=== PATIENT | female | born 1965 | race Caucasian/White ===

== ENCOUNTER → 2016-12-02 | Outpatient (CLI) | payer OTHER | END | disposition home or self-care (01) | LOC: YCFC.O 16:03 | PROVIDERS: ATTEND Nurse Practitioner Family | DX: N39.0 Urinary tract infection, site not specified (principal) ==

== ENCOUNTER → 2017-07-17 | Outpatient (CLI) | payer OTHER | END | disposition home or self-care (01) | LOC: LAB.O 07:27 | PROVIDERS: ATTEND Internal Medicine Rheumatology | DX: M06.89 Other specified rheumatoid arthritis, multiple sites (principal); Z79.899 Other long term (current) drug therapy; R79.89 Other specified abnormal findings of blood chemistry ==

== ENCOUNTER → 2017-09-09 | Outpatient (CLI) | payer OTHER | END | disposition home or self-care (01) | LOC: LAB.O 14:49 | PROVIDERS: ATTEND Internal Medicine Rheumatology | DX: M06.89 Other specified rheumatoid arthritis, multiple sites (principal); Z79.899 Other long term (current) drug therapy ==

== ENCOUNTER → 2018-03-25 | Outpatient (CLI) | payer BC | LOC: LAB.O 16:17 | PROVIDERS: ATTEND Internal Medicine Rheumatology | DX: M06.89 Other specified rheumatoid arthritis, multiple sites (principal); Z79.899 Other long term (current) drug therapy; Z01.89 Encounter for other specified special examinations ==

== ENCOUNTER 2018-03-29 21:32 | Emergency (ER) | payer BC ==
--- NOTE | 2018-03-29 21:58 | ED.PDOC ---
History of Present Illness - General Chief Complaint: General Stated Complaint: fever, weakness Time Seen by Provider: 03/29/18 21:51 Source: patient, family Exam Limitations: clinical condition - History of Present Illness Timing/Duration: getting worse - pt was better this morning and is worse now, other - 2 days Severity: severe Improving Factors: nothing Worsening Factors: movement Associated Symptoms: fever/chills, headaches, nausea/vomiting, weakness Allergies/Adverse Reactions: Allergies Codeine Allergy (Verified 03/29/18 21:48) Review of Systems - Review of Systems Constitutional: States: chills, fever, weakness EENTM: States: other - photophobia Respiratory: Denies: cough, short of breath Cardiology: Denies: chest pain, syncope Gastrointestinal/Abdominal: States: abdominal pain, constipation, nausea, vomiting. Denies: diarrhea Genitourinary: States: hematuria. Denies: dysuria, frequency Skin: Denies: rash Neurological: States: headache, weakness Endocrine: States: no symptoms reported Hematologic/Lymphatic: States: no symptoms reported Past Medical History (General) - Patient Medical History Hx Hypertension: Yes Surgical History: cholecystectomy - Vaccination History Hx Tetanus, Diphtheria Vaccination: Yes Hx Influenza Vaccination: No Hx Pneumococcal Vaccination: No - Social History Hx Alcohol Use: No - Female History Patient is a Female of Child Bearing Age (10 -59 yrs old): Yes Patient : No - tubal Family Medical History - Family History Father Family History: Unknown Physical Exam - Physical Exam General Appearance: Lethargic - disoriented, Obvious distress Eye Exam: bilateral normal Ears, Nose, Throat: normal pharynx Neck: non-tender, full range of motion, supple Respiratory: lungs clear, normal breath sounds, no respiratory distress Cardiovascular/Chest: normal peripheral pulses, regular rate, rhythm, no edema Gastrointestinal/Abdominal: normal bowel sounds, non tender, soft Extremity: normal range of motion, non-tender, normal inspection, no pedal edema Neurologic: other - confusion and disorientation Skin Exam: normal color, warm/dry Lymphatic: no adenopathy Departure - Departure Clinical Impression: Acute febrile illness, Hyponatremia with decreased serum osmolality Time of Disposition: 23:48 - Pt is awake and alert upon D/C Disposition: Discharge to Home or Self Care Departure Forms: ED Discharge - Pt. Copy, Patient Portal Self Enrollment Referrals: Wild,Teresa, [employer] [Primary Care Provider] - 1-2 Weeks
[2018-03-29] MEDS: SODIUM CHLORIDE 0.9% 1000ML 1,000 ML IVS ONE ×2 (22:09→23:04)
[2018-03-29] MEDS: KETOROLAC TROMETHAMINE INJ 30 MG/ML VIAL IV ONE (22:10)
[2018-03-29] MEDS: ONDANSETRON INJ 4 MG/2 ML VIAL IV ONE (22:10)
[2018-03-29] MEDS: ACETAMINOPHEN 500 MG TAB PO ONE (22:18)
--- NOTE | 2018-03-29 22:52 | RAD ---
EXAM: AP CHEST RADIOGRAPH CLINICAL INDICATION: Altered mental status. Fever. COMPARISON: Compared to chest radiograph of June 13, 2015. FINDINGS: Cardiac size and pulmonary vasculature are normal. Lungs are clear. No pleural effusions or pneumothorax. No hilar or mediastinal lymphadenopathy. No mediastinal widening. No extraluminal bowel gas under the hemidiaphragms. Bones are intact on this single view. IMPRESSION: Normal portable AP chest radiograph. Electronically signed by: Justen Delcid MD 03/29/2018 10:51 PM CDT
[2018-03-29 23:27] VITALS: BP 129/73; TEMP 100.8; O2SAT 94
== END 2018-03-30 00:01 | disposition home or self-care (01) ==
LOC: ER 21:32
DX: E87.1 Hypo-osmolality and hyponatremia (principal); R50.9 Fever, unspecified; I10 Essential (primary) hypertension
CPT/HCPCS: 36415; 36416; 71045; 80053; 81001; 82948; 83605; 85025; 87040; 87086; J1885; J2405; J7030

== ENCOUNTER → 2019-07-07 | Outpatient (CLI) | payer BC | LOC: LAB.O 08:59 | PROVIDERS: ATTEND Internal Medicine | DX: M06.9 Rheumatoid arthritis, unspecified (principal); Z79.899 Other long term (current) drug therapy ==